=== PATIENT | female | born 1975 | race Caucasian/White ===

== ENCOUNTER → 2017-07-16 | Outpatient (CLI) | payer BC ==
--- NOTE | 2017-07-17 09:18 | Diagnostic Imaging Report ---
Indication: Routine screening. Comparison: Made with prior study from 10/28/2013. Findings: Both breasts remain heterogeneously dense, limiting the sensitivity of mammography. Calcifications in the superior left breast, appear to be fairly stable. There is benign calcification on the right as well. No mass or malignant appearing microcalcifications are seen. The axillae are unremarkable. Impression: BI-RADS category 2. No mammographic features suspicious for malignancy are identified. ACR BI-RADS Category 2: Benign findings. Result letter will be mailed to the patient. Note: At least 10% of breast cancer is not imaged by mammography. Dictated by: Dictated on workstation # [id number]
== END ==
LOC: RAD 14:37
PROVIDERS: ATTEND Internal Medicine
DX: Z12.31 Encounter for screening mammogram for malignant neoplasm of breast (principal)
CPT/HCPCS: 77067

== ENCOUNTER → 2020-10-24 | Outpatient (CLI) | payer BC ==
[2020-10-24 11:57] LABS: BASOPHILS % (AUTO) 1 % (0-10); EOSINOPHILS # (AUTO) 0.4 10^3/uL (0.0-0.3); EOSINOPHILS % (AUTO) 6 % (0-10); HEMATOCRIT 33 % (35-52); HEMOGLOBIN 10.5 g/dL (11.5-16.0); LYMPHOCYTES # (AUTO) 1.3 10^3/uL (1.0-4.0); LYMPHOCYTES % (AUTO) 21 % (12-44); MEAN CORPUSCULAR HEMOGLOBIN 31 pg (25-34); MEAN CORPUSCULAR HGB CONC 32 g/dL (32-36); MEAN CORPUSCULAR VOLUME 96 fL (80-99); MEAN PLATELET VOLUME 9.9 fL (9.0-12.2); MONOCYTES # (AUTO) 0.4 10^3/uL (0.0-1.0); MONOCYTES % (AUTO) 6 % (0-12); NEUTROPHILS # (AUTO) 4.3 10^3/uL (1.8-7.8); NEUTROPHILS % (AUTO) 67 % (42-75); PLATELET COUNT 207 10^3/uL (130-400); WHITE BLOOD COUNT 6.4 10^3/uL (4.3-11.0)
[2020-10-24 12:18] LABS: ALBUMIN 3.9 GM/DL (3.2-4.5)
[2020-10-24 12:19] LABS: POTASSIUM 3.8 MMOL/L (3.6-5.0)
[2020-10-24 12:20] LABS: CALCIUM 8.5 MG/DL (8.5-10.1)
[2020-10-24 12:21] LABS: TOTAL PROTEIN 6.4 GM/DL (6.4-8.2)
[2020-10-24 12:23] LABS: BILIRUBIN,TOTAL 0.4 MG/DL (0.1-1.0)
[2020-10-24 12:25] LABS: CREATININE SERUM 0.76 MG/DL (0.60-1.30)
--- NOTE | 2020-10-24 13:33 | Diagnostic Imaging Report ---
PROCEDURE: US Non-ob pelvis comp/trans. TECHNIQUE: Multiple realtime grayscale images were obtained of the pelvis in various projections endovaginally. Transabdominal imaging was also performed. INDICATION: Abnormal uterine bleeding for 4 weeks The uterus measures 8 x 4 x 5 cm. The endometrium measures 11 mm. The right ovary measures 2.6 x 1.9 cm. The left ovary measures 3.5 x 2.8 cm. The endometrium is mildly prominent but homogeneous. There is a 2.8 cm complex cyst on the left ovary with a single septation. There are small nabothian cysts in the cervix. There is a small amount of free fluid which is likely physiologic. IMPRESSION: Septated cyst on the left ovary. There is mild thickening in the endometrium. Dictated by: Dictated on workstation # [id number]
== END ==
LOC: RAD 12:00
PROVIDERS: ATTEND Nurse Practitioner Family
DX: N83.202 Unspecified ovarian cyst, left side (principal); R93.89 Abnormal findings on diagnostic imaging of other specified body structures
CPT/HCPCS: 36415; 76830; 76856; 80053; 85025

== ENCOUNTER 2022-09-26 13:09 | Outpatient (CLI) | payer BC ==
[~2022-09-26] VITALS: Ht 180.3 cm; Wt 73.2 kg
== END 2022-09-27 12:55 | disposition home or self-care (01) ==
LOC: PREOP 13:09
PROVIDERS: ATTEND Internal Medicine
DX: Z01.818 Encounter for other preprocedural examination (principal); Z12.11 Encounter for screening for malignant neoplasm of colon

== ENCOUNTER 2022-10-04 07:13 | Day surgery (SDC) | payer BC ==
--- NOTE | 2022-09-26 18:48 | HISTORY AND PHYSICAL ---
COLONOSCOPY HISTORY AND PHYSICAL HISTORY OF PRESENT ILLNESS: The patient is a 47-year-old white female being set up for her first screening colonoscopy. She does have a history of IBS-C that has been refractory to MiraLax and laxatives as well as increased fiber. She was recently given some 72 mg Linzess samples, reporting good results with this. She was also having hot flashes and did have elevated FSH and LSH levels compatible with menopause. Her symptoms have been going on since May, thus far relatively tolerable but she wishes to continue to abstain from consideration for hormonal replacement therapy. She denies bright red blood per rectum despite constipation, although it has been a few days since the bowel movement that she had any abdominal discomfort. She has not had to strain to pass hard stool since the initiation of Linzess. She is not aware of any family history for colon cancer. PHYSICAL EXAMINATION: GENERAL: Reveals pleasant white female, normal weight, who appears to be in no acute distress. VITAL SIGNS: Weight 161 pounds and blood pressure 120/70. CHEST: Clear. CARDIOVASCULAR: Reveals regular rate and rhythm without murmur, S3 or S4. ABDOMEN: Soft and supple without mass, organomegaly or tenderness. EXTREMITIES: Reveal no cyanosis, clubbing or edema. ASSESSMENT AND PLAN: 1. The patient is being set up for her first screening colonoscopy, deemed to be of average risk. 2. Menopausal symptoms. Continuing conservative management. We will see her back for yearly wellness evaluation. 3. IBS-C, in the process of getting prior authorization for Linzess coverage as she has failed [id number] treatment for constipation thus far. Prep instructions for colonoscopy were given and questions were answered. Job ID: [id number] DocumentID: [id number] Dictated Date: 09/26/2022 17:03:39 [employer] Date: 09/26/2022 17:28:00 Dictated By: OSWALD BONDS MD
[~2022-10-04] VITALS: Ht 180 cm; Wt 73.2 kg
[2022-10-04] MEDS ORDERED: LACTATED RINGERS 1,000 ML IV STA (07:17)
[2022-10-04] MEDS ORDERED: MIDAZOLAM 2 MG/2 ML (VERSED) VIAL ONE (07:28)
[2022-10-04] MEDS ORDERED: PROPOFOL INJECTION 50 ML IV ONE (07:28)
[2022-10-04 07:30] VITALS: BP 125/70
--- NOTE | 2022-10-04 07:48 | Pre-Op Note & Conscious Sedat ---
Pre-Operative Progress Note Date H&P Reviewed: Oct 04, 2022 Time H&P Reviewed: 07:48 History & Physical: H&P Reviewed, Patient Examed, No changes noted Pre-Op Diagnosis: screening Moderate Sedation PreProcedure ASA Score 1 Airway Lungs Heart ASA score ASA 1: a normal healthy patient ASA 2: a patient with a mild systemic disease (mid diabetes, controlled hypertension, obesity ASA 3: a patient with a severe systemic disease that limits activity (angina, COPD, prior Myocardial infarction) ASA 4: a patient with an incapacitating disease that is a constant threat to life (CHF, renal failure) ASA 5: a moribund patient not expected to survive 24 hrs. (ruptured aneurysm) ASA 6: a declared brain- patient whose organs are being harvested. For emergent operations, add the letter E after the classification Mallampati Classification Grade 1 Sedation Plan Analgesia, Amnesia, Plan communicated to team members, Discussed options with patient/fam, Discussed risks with patient/fam The patient is an appropriate candidate to undergo the planned procedure, sedation, and anesthesia. The patient immediately re-assessed prior to indication. OSWALD BONDS MD Oct 04, 2022 07:48
[2022-10-04] MEDS ORDERED: proPOfol 200 MG/20 ML (DIPRIVAN) VIAL IV ONE (08:15)
[2022-10-04 08:30] VITALS: BP 91/50
--- NOTE | 2022-10-04 08:33 | Progress Note-Post Operative ---
Post-Procedure Note Physician (s)/[employer] Officer (s) Physician OSWALD BONDS MD Pre-Procedure Diagnosis Pre-Procedure Diagnosis: screening Post-Procedure Diagnosis Post-operative diagnosis: Prior to undergoing colonoscopy digital rectal evaluation was performed. Anal suture tone was normal and the perianal reflexes intact. No abnormalities noted on digital inspection anal canal or distal rectal vault. The colonoscope was then inserted into the rectum and under direct visualization advanced to the cecum. The cecum was identified by identification of the ileocecal valve and the cecal strap. Photographic documentation was obtained. Careful inspection was made as the colonoscope was withdrawn. Quality the prep was good. Findings: There are no evidence for internal or external hemorrhoids and the rectum was unremarkable. The sigmoid colon and descending colon were unremarkable as well. Present in the distal transverse colon was a 4 mm sessile polyp was photographed and biopsied and ablated with no subsequent blood loss with hot forceps. The remainder of the transverse colon hepatic flexure ascending colon and cecum were unremarkable. A/P 1. One 4 mm sessile polyp was removed via hot forceps from the distal transverse colon with an otherwise normal colonoscopy to cecum under good prep conditions. As long as there are no surprises on histopathology report we will likely advocate repeat screening colonoscopy in 10 years. OSWALD BONDS MD Oct 04, 2022 08:33
[2022-10-04 08:35] VITALS: BP 96/55
[2022-10-04 08:40] VITALS: BP 100/55
[2022-10-04 09:15] VITALS: BP 116/69
--- NOTE | 2022-10-04 13:56 | Anesthesia-General Post-Op ---
MAC Patient Condition Mental Status/LOC: Same as Preop Cardiovascular: Satisfactory Nausea/Vomiting: Absent Respiratory: Satisfactory Pain: Controlled Complications: Absent Post Op Complications Complications None Follow Up Care/Instructions Patient Instructions None needed. Anesthesiology Discharge Order Discharge Order Patient is doing well, no complaints, stable vital signs, no apparent adverse anesthesia problems. No complications reported per nursing. OSIRIS PAZ CRNA Oct 04, 2022 13:56
== END 2022-10-04 09:20 | disposition home or self-care (01) ==
LOC: ENDO 07:13
PROVIDERS: ATTEND Internal Medicine
DX: K63.5 Polyp of colon (principal); K58.1 Irritable bowel syndrome with constipation; Z87.891 Personal history of nicotine dependence; Z79.899 Other long term (current) drug therapy
CPT/HCPCS: 88305